=== PATIENT | female | born 1935 | race African-American/Black ===

== ENCOUNTER 2017-10-17 09:35 | Observation (INO) | payer MEDICARE ==
[~2017-10-17] VITALS: Ht 165.1 cm; Wt 92.1 kg
[2017-10-17] MEDS ORDERED: MORPHINE SULFATE 4 MG/ML CPJ (NOT FOR IM USE) IV STA (10:13)
[2017-10-17] MEDS ORDERED: FAMOTIDINE 20MG/2ML VIAL IV STA (10:13)
[2017-10-17] MEDS ORDERED: ONDANSETRON HCL 4MG/2ML VIAL IV STA (10:13)
[2017-10-17] MEDS ORDERED: SODIUM CHLORIDE 0.9% 1,000 ML IV ONE (10:13)
[2017-10-17 10:37] LABS: BASOPHILS % 0.8 % (0.0-2.0); EOSINOPHILS % 0.7 % (0.0-5.0); HEMATOCRIT. 41.9 % (36.0-48.0); HEMOGLOBIN. 14.2 g/dL (12.0-16.0); LYMPHOCYTES % 17.9 % (20.0-50.0); MEAN CORPUSCULAR HEMOGLOBIN 29.8 pg (28.0-32.0); MEAN CORPUSCULAR VOLUME 87.9 fL (81.0-99.0); MEAN PLATELET VOLUME 7.2 fl (7.4-10.4); MONOCYTES % 7.8 % (2.0-8.0); NEUTROPHILS % 72.8 % (40.0-76.0); PLATELET 188 x1000/uL (130-400); RED BLOOD CELL COUNT 4.76 mill/uL (4.2-5.4); RED CELL DISTRIBUTION WIDTH 14.3 % (11.6-14.6)
[2017-10-17 10:44] LABS: CHLORIDE 101 mEq/L (98-107)
[2017-10-17 10:49] LABS: PROTHROMBIN TIME 10.7 sec (9.4-11.6)
[2017-10-17 11:10] LABS: CLARITY URINE CLOUDY (CLEAR); COLOR URINE YELLOW (YELLOW); KETONES URINE NEGATIVE (NEGATIVE); LEUKOCYTE ESTERASE URINE NEGATIVE (NEGATIVE); NITRITE URINE NEGATIVE (NEGATIVE); OCCULT BLOOD URINE NEGATIVE (NEGATIVE); PH URINE 6.5 (4.5-8.0); PROTEIN URINE NEGATIVE (NEGATIVE); SPECIFIC GRAVITY URINE 1.012 (1.005-1.030); UROBILINOGEN URINE 0.2 E.U./dL (0.2-1.0)
[2017-10-17] MEDS ORDERED: KETOROLAC 30MG/ML VIAL IV ONE (12:15)
[2017-10-17 16:42] VITALS: BP 172/80
[2017-10-17] MEDS ORDERED: CLONIDINE 0.1MG TABLET PO PRN (16:45)
[2017-10-17] MEDS ORDERED: ACETAMINOPHEN 325MG TABLET PO PRN (16:45)
[2017-10-17] MEDS: AMLODIPINE 10MG TABLET PO SCH (17:00)
[2017-10-17 17:30] VITALS: BP 150/83
[2017-10-17] MEDS: ONDANSETRON HCL 4MG/2ML VIAL IV PRN (17:38)
[2017-10-17] MEDS: ENOXAPARIN 30MG/0.3ML SYR SUBCUT SCH (18:37)
[2017-10-17] MEDS: SODIUM CHLORIDE 0.9% 1,000 ML IV SCH (18:40)
[2017-10-17 20:00] VITALS: BP 155/74
[2017-10-17] MEDS: FAMOTIDINE 20MG TABLET PO SCH (21:00)
[2017-10-18] VITALS: BP 157/75
[2017-10-18 04:00] VITALS: BP 160/70
[2017-10-18] MEDS: ENOXAPARIN 30MG/0.3ML SYR SUBCUT SCH (05:49)
[2017-10-18 05:55] LABS: BASOPHILS % 0.3 % (0.0-2.0); EOSINOPHILS % 0.6 % (0.0-5.0); HEMATOCRIT. 40.7 % (36.0-48.0); HEMOGLOBIN. 13.9 g/dL (12.0-16.0); LYMPHOCYTES % 16.7 % (20.0-50.0); MEAN CORPUSCULAR VOLUME 88.2 fL (81.0-99.0); MEAN PLATELET VOLUME 7.9 fl (7.4-10.4); MONOCYTES % 7.3 % (2.0-8.0); NEUTROPHILS % 75.1 % (40.0-76.0); PLATELET 169 x1000/uL (130-400); RED BLOOD CELL COUNT 4.62 mill/uL (4.2-5.4); RED CELL DISTRIBUTION WIDTH 14.3 % (11.6-14.6)
[2017-10-18 06:24] LABS: CHLORIDE 103 mEq/L (98-107)
[2017-10-18 07:46] VITALS: BP 140/66
[2017-10-18] MEDS: FAMOTIDINE 20MG TABLET PO SCH (08:36)
[2017-10-18] MEDS: AMLODIPINE 10MG TABLET PO SCH (08:36)
[2017-10-18] MEDS: ONDANSETRON HCL 4MG/2ML VIAL IV PRN (08:36)
[2017-10-18] MEDS: SODIUM CHLORIDE 0.9% 1,000 ML IV SCH (08:43)
[2017-10-18] MEDS ORDERED: MORPHINE SULFATE 4 MG/ML CPJ (NOT FOR IM USE) IV PRN (11:15)
[2017-10-18 11:59] VITALS: BP 165/75
[2017-10-18] MEDS ORDERED: DEXT 5%/0.45% NACL KCL 20MEQ/L 1,000 ML IV SCH (12:30)
[2017-10-18 12:37] VITALS: BP_SYST 135; BP_SYST 165; BP_DIAS 63; BP_DIAS 75
[2017-10-18 16:00] VITALS: BP 135/63
== END 2017-10-18 18:15 | disposition short-term general hospital (02) ==
LOC: ER 09:35 → INTOOBSV 13:51 → 6EST 13:51 → EDBEDREQSVC 13:54 → EDBEDREQ 13:54 → ENRESERV 14:09
PROVIDERS: ADMIT Ophthalmology; ATTEND Ophthalmology
DX: R11.2 Nausea with vomiting, unspecified (principal); R10.9 Unspecified abdominal pain; M19.90 Unspecified osteoarthritis, unspecified site; Z85.038 Personal history of other malignant neoplasm of large intestine; I10 Essential (primary) hypertension; Z90.710 Acquired absence of both cervix and uterus; Z90.49 Acquired absence of other specified parts of digestive tract
CPT/HCPCS: 36415; 71045; 74176; 80048; 80053; 81003; 83605; 83690; 83880; 84484; 85025; 85610; 87040; 87086; 93005; 96361; 96372; 96374; 96375; 96376; 99285; G0378; J1650; J1885; J2405; J3490; J7030